=== PATIENT | male | born 2000 | race African-American/Black ===

== ENCOUNTER 2024-01-09 11:44 | Emergency (ER) | payer SELFPAY ==
[2024-01-09 12:02] VITALS: BP 108/67; PULSE 70; RESP 18; TEMP 98.8; BMI 25.4
[2024-01-09] MEDS ORDERED: KETOROLAC TROMETHAMINE 30 MG/1 ML VIAL ONE (12:29)
[2024-01-09] MEDS: KETOROLAC TROMETHAMINE 30 MG/1 ML VIAL IM ONE (12:32)
== END 2024-01-09 13:48 | disposition home or self-care (01) ==
LOC: JERFT 11:44
PROC: 3E0233Z Introduction of Anti-inflammatory into Muscle, Percutaneous Approach (ICD-10-PCS; principal; 2024-01-09)
DX: S50.02XA Contusion of left elbow, initial encounter (principal); V28.09XA Other motorcycle driver injured in noncollision transport accident in nontraffic accident, initial encounter
CPT/HCPCS: 73070-TC-LT-FY; 99284-25

== ENCOUNTER 2024-01-15 07:22 | Emergency (ER) | payer SELFPAY ==
[2024-01-15 07:32] VITALS: BP 132/64; PULSE 58; RESP 17; TEMP 98.3; BMI 23.7
[2024-01-15] MEDS ORDERED: ACETAMINOPHEN 325 MG TABLET (FP) ONE (08:14)
[2024-01-15] MEDS: ACETAMINOPHEN 500 MG TABLET (FP) PO ONE (08:17)
[2024-01-15] MEDS ORDERED: LIDOCAINE 4% PATCH TP ONE (11:05)
[2024-01-15] MEDS ORDERED: KETOROLAC TROMETHAMINE 30 MG/1 ML VIAL ONE (11:05)
[2024-01-15] MEDS: LIDOCAINE 4% PATCH TP ONE (11:14)
[2024-01-15] MEDS: KETOROLAC TROMETHAMINE 30 MG/1 ML VIAL IM ONE (11:15)
[2024-01-15] MEDS ORDERED: LIDOCAINE PATCH REMOVAL MC SCH (22:00)
== END 2024-01-15 11:17 | disposition home or self-care (01) ==
LOC: JER 07:22 → JERFT 07:22
PROC: 3E0233Z Introduction of Anti-inflammatory into Muscle, Percutaneous Approach (ICD-10-PCS; principal; 2024-01-15)
DX: M54.6 Pain in thoracic spine (principal); M25.512 Pain in left shoulder; K13.0 Diseases of lips; Y04.0XXA Assault by unarmed brawl or fight, initial encounter
CPT/HCPCS: 70450-TC; 70486-TC; 71046-TC-FY; 72070-TC-FY; 72100-TC-FY; 72170-TC-FY; 73502-TC-LT-FY; 99284-25